=== PATIENT | female | born 1960 | race Caucasian/White ===

== ENCOUNTER 2021-02-05 06:00 | Day surgery (SDC) | payer OTHER, SELFPAY ==
[~2021-02-05] VITALS: Ht 152.4 cm; Wt 77.1 kg
[2021-02-05] MEDS ORDERED: fentaNYL citrate 0.05 MG/ML VIAL ONE (07:44)
[2021-02-05] MEDS ORDERED: LIDOCAINE 2% 100 MG/5 ML UJET TP ONE ×2 (07:44→08:10)
[2021-02-05] MEDS ORDERED: MIDAZOLAM 2 MG/2 ML VIAL ONE (07:44)
[2021-02-05] MEDS ORDERED: fentaNYL citrate 0.05 MG/ML VIAL IVP ONE (08:10)
[2021-02-05] MEDS ORDERED: SIMETHICONE 40 MG/0.6 ML PO ONE (08:10)
== END 2021-02-05 09:17 | disposition home or self-care (01) ==
LOC: MDS 06:00 → MMU 06:08 → MDS 09:17
PROVIDERS: ATTEND Internal Medicine Gastroenterology
DX: R19.5 Other fecal abnormalities (principal); E03.9 Hypothyroidism, unspecified; K21.9 Gastro-esophageal reflux disease without esophagitis; E78.00 Pure hypercholesterolemia, unspecified; Z20.828 Contact with and (suspected) exposure to other viral communicable diseases; Z79.899 Other long term (current) drug therapy
CPT/HCPCS: 45378; J3010; U0003; J2250